=== PATIENT | male | born 1935 | race Caucasian/White ===

== ENCOUNTER 2016-05-26 16:45 | Inpatient (IN) | payer MEDICARE ==
[~2016-05-26] VITALS: Ht 172.7 cm; Wt 81.7 kg
[2016-05-26] VITALS (10 sets, daily range): BP systolic 135–200; BP diastolic 72–87; PULSE 62–97; RESP 18–20; TEMP 97.1–98.7; O2SAT 96–100
[~2016-05-26 16:45] MED LIST: ASPI81 PO; CITA20TA4 PO
--- NOTE | 2016-05-26 17:52 | RADHPO ---
EXAM DATE/TIME: 05/26/2016 17:17 [facility] COMPARISON: No previous studies available for comparison. INDICATIONS : Wind blown door shut on left ankle MEDICAL HISTORY : None. SURGICAL HISTORY : None. ENCOUNTER: Initial ACUITY: 3 days PAIN SCORE: 8/10 LOCATION: Left ankle FINDINGS: There is a mildly displaced fracture of the lateral malleolus with medial subluxation of the distal t ibia and talar dome. CONCLUSION: 1. Lateral malleolus fracture with medial subluxation of the distal tibia. Soft tissue swelling. Daljit Hughes MD on May 26, 2016 at 17:50 Board Certified Radiologist. This report was verified electronically.
[2016-05-26] MEDS ORDERED: MORPHINE SULFATE 8 MG/ML INJ IV PUSH ONE (18:00)
[2016-05-26] MEDS ORDERED: ETOMIDATE 20 MG/10 ML VIAL IV PUSH ONE (18:00)
[2016-05-26] MEDS ORDERED: ONDANSETRON HCL 4 MG/2 ML VIAL IV PUSH ONE (18:00)
[2016-05-26] MEDS ORDERED: NORC5TAB PO (18:08)
[2016-05-26] MEDS ORDERED: ASPI1TAB69 PO (18:10)
--- NOTE | 2016-05-26 18:10 | PD ---
HPI . Left ankle injury Chief Complaint: Injury Time Seen by Provider: 17:51 Travel History International Travel<30 days: No Contact w/Intl Traveler<30days: No Traveled to known affect area: No History of Present Illness HPI Patient presents for evaluation of left ankle injury. He states that he was bringing groceries in 3 days ago. He states that the door slammed shut onto his right ankle causing him to fall. He states that he was sitting on top of his left ankle. Since then, he has been around at home by using a rolling chair. He has not been able to ambulate on his ankle at all. He has been treating his pain with aspirin with good relief. He denies any other associated injuries. [facility] Past Medical History Cardiac Catheterization: Yes Diminished Hearing: No Respiratory: Yes (ASBESTOSIS) Past Surgical History Cardiac Surgery: Yes (ANGIOPLASTY) Social History Alcohol Use: Yes Tobacco Use: Yes (OCC) Substance Use: No Allergies-Medications (Allergen,Severity, Reaction): Coded Allergies: No Known Allergies (Verified , 05/26/16) Reported Meds & Prescriptions Reported Meds & Active Scripts Active Reported Aspirin 81 Mg Tabdr 81 Mg PO DAILY Review of Systems Except as stated in HPI: all other systems reviewed are Neg Musculoskeletal: Positive: Arthralgias Skin: Positive Other (bruising on the medial aspect of the right ankle where he was struck by the door and bruising on the left ankle associated with the ankle injury.) Physical Exam Narrative GENERAL: This is a healthy-appearing elderly man who is in no acute distress. SKIN: Warm and dry. He has some bruising to the medial aspect of the right ankle. He has some pretty significant bruising to the left ankle. HEAD: Atraumatic. Normocephalic. EYES: Pupils equal and round. ENT: No nasal bleeding or discharge. Mucous membranes pink and moist. NECK: Trachea midline. CARDIOVASCULAR: Regular rate and rhythm. RESPIRATORY: No accessory muscle use. MUSCULOSKELETAL: Obvious deformity of the left ankle. The medial malleolus appears to be about to protrude through the skin. NEUROLOGICAL: Awake and alert. No obvious cranial nerve deficits. Motor grossly within normal limits. Normal speech. PSYCHIATRIC: Appropriate mood and affect; insight and judgment normal. Data Data Last Documented VS Vital Signs Date Time Temp Pulse Resp B/P Pulse Ox O2 Delivery O2 Flow Rate FiO2 05/26/16 19:00 16 05/26/16 18:50 97 3.00 05/26/16 18:34 Room Air 05/26/16 18:33 75 148/72 05/26/16 16:52 98.7 Orders Ankle, Complete ([id number]) (05/26/16 ) Ice/Cold Pack (05/26/16 16:58) ^ Consent (05/26/16 17:58) Sodium Chlor 0.9% 1000 Ml Inj (Ns 1000 M (05/26/16 18:00) Etomidate Inj (Amidate Inj) (05/26/16 18:00) Morphine Inj (Morphine Inj) (05/26/16 18:00) Ondansetron Inj (Zofran Inj) (05/26/16 18:00) Electrocardiogram (05/26/16 18:27) Ckmb (Isoenzyme) Profile (05/26/16 18:27) Complete Blood Count With Diff (05/26/16 18:27) Comprehensive Metabolic Panel (05/26/16 18:27) Magnesium (Mg) (05/26/16 18:27) Prothrombin Time / Inr (Pt) (05/26/16 18:27) Act Partial Throm Time (Ptt) (05/26/16 18:27) Troponin I (05/26/16 18:27) Chest, Single Ap (05/26/16 18:27) Ecg Monitoring (05/26/16 18:27) Iv Access Insert/Monitor (05/26/16 18:27) Oximetry (05/26/16 18:27) Oxygen Administration (05/26/16 18:27) Admit To Inpatient (05/26/16 ) Vital Signs (Adult) Q4H (05/26/16 18:55) Activity Bed Rest (05/26/16 18:55) Diet Heart Healthy (05/26/16 Dinner) Diet Npo (05/27/16 Breakfast) Sodium Chloride 0.9% Flush (Ns Flush) (05/26/16 19:00) Sodium Chloride 0.9% Flush (Ns Flush) (05/26/16 21:00) Acetaminophen (Tylenol) (05/26/16 19:00) Ondansetron Inj (Zofran Inj) (05/26/16 19:00) Consult Orthopedic (05/26/16 ) Morphine Inj (Morphine Inj) (05/26/16 19:00) Splint Or Brace Apply/Monitor (05/26/16 19:02) CKMB (05/26/16 18:30) CKMB% (05/26/16 18:30) Ankle, Limited (Ap&Lat) (05/26/16 19:07) Labs Laboratory Tests Test 05/26/16 18:30 White Blood Count 9.7 TH/MM3 Red Blood Count 2.96 MIL/MM3 Hemoglobin 10.3 GM/DL Hematocrit 30.4 % Mean Corpuscular Volume 102.8 FL Mean Corpuscular Hemoglobin 35.0 PG Mean Corpuscular Hemoglobin 34.0 % Concent Red Cell Distribution Width 17.5 % Platelet Count 150 TH/MM3 Mean Platelet Volume 9.1 FL Neutrophils (%) (Auto) 75.8 % Lymphocytes (%) (Auto) 15.6 % Monocytes (%) (Auto) 7.5 % Eosinophils (%) (Auto) 0.5 % Basophils (%) (Auto) 0.6 % Neutrophils # (Auto) 7.4 TH/MM3 Lymphocytes # (Auto) 1.5 TH/MM3 Monocytes # (Auto) 0.7 TH/MM3 Eosinophils # (Auto) 0.0 TH/MM3 Basophils # (Auto) 0.1 TH/MM3 CBC Comment DIFF FINAL Differential Comment Prothrombin Time 11.3 SEC Prothromb Time International 1.0 RATIO Ratio Activated Partial 28.3 SEC Thromboplast Time Sodium Level 139 MEQ/L Potassium Level 3.9 MEQ/L Chloride Level 101 MEQ/L Carbon Dioxide Level 28.0 MEQ/L Anion Gap 10 MEQ/L Blood Urea Nitrogen 32 MG/DL Creatinine 1.20 MG/DL Estimat Glomerular Filtration 59 ML/MIN Rate Random Glucose 120 MG/DL Calcium Level 8.7 MG/DL Magnesium Level 2.5 MG/DL Total Bilirubin 1.6 MG/DL Aspartate Amino Transf 189 U/L (AST/SGOT) Alanine Aminotransferase 101 U/L (ALT/SGPT) Alkaline Phosphatase 79 U/L Total Creatine Kinase 536 U/L Creatine Kinase MB 2.1 NG/ML Creatine Kinase MB % 0.4 % Troponin I LESS THAN 0.02 NG/ML Total Protein 7.4 GM/DL Albumin 3.6 GM/DL MDM Medical Decision Making Medical Screen Exam Complete: Yes Emergency Medical Condition: Yes Medical Record Reviewed: Yes (he has a history of hypertension and a remote history of prostate cancer) Interpretation(s) EKG shows a normal sinus rhythm with no acute ischemic changes. EKG is unchanged from previous. Differential Diagnosis Differential diagnosis of extremity trauma includes but is not limited to fracture, sprain or strain, dislocation, contusion Narrative Course Patient presents for treatment of a left ankle injury. On exam, he has an obvious deformity. It also looks like fracture could easily go from a closed fracture to an open fracture. Therefore, he will be given conscious sedation and the fracture will be reduced. Last Impressions Ankle X-Ray 05/26/16 0000 Signed Impressions: Service Date/Time: Saturday, May 26, 2016 17:17 - CONCLUSION: 1. Lateral malleolus fracture with medial subluxation of the distal tibia. Soft tissue swelling. Daljit Hughes MD The x-ray was independently viewed by me. Laboratory Tests Test 05/26/16 18:30 White Blood Count 9.7 TH/MM3 Red Blood Count 2.96 MIL/MM3 Hemoglobin 10.3 GM/DL Hematocrit 30.4 % Mean Corpuscular Volume 102.8 FL Mean Corpuscular Hemoglobin 35.0 PG Mean Corpuscular Hemoglobin 34.0 % Concent Red Cell Distribution Width 17.5 % Platelet Count 150 TH/MM3 Mean Platelet Volume 9.1 FL Neutrophils (%) (Auto) 75.8 % Lymphocytes (%) (Auto) 15.6 % Monocytes (%) (Auto) 7.5 % Eosinophils (%) (Auto) 0.5 % Basophils (%) (Auto) 0.6 % Neutrophils # (Auto) 7.4 TH/MM3 Lymphocytes # (Auto) 1.5 TH/MM3 Monocytes # (Auto) 0.7 TH/MM3 Eosinophils # (Auto) 0.0 TH/MM3 Basophils # (Auto) 0.1 TH/MM3 CBC Comment DIFF FINAL Differential Comment Prothrombin Time 11.3 SEC Prothromb Time International 1.0 RATIO Ratio Activated Partial 28.3 SEC Thromboplast Time Sodium Level 139 MEQ/L Potassium Level 3.9 MEQ/L Chloride Level 101 MEQ/L Carbon Dioxide Level 28.0 MEQ/L Anion Gap 10 MEQ/L Blood Urea Nitrogen 32 MG/DL Creatinine 1.20 MG/DL Estimat Glomerular Filtration 59 ML/MIN Rate Random Glucose 120 MG/DL Calcium Level 8.7 MG/DL Magnesium Level 2.5 MG/DL Total Bilirubin 1.6 MG/DL Aspartate Amino Transf 189 U/L (AST/SGOT) Alanine Aminotransferase 101 U/L (ALT/SGPT) Alkaline Phosphatase 79 U/L Total Creatine Kinase 536 U/L Creatine Kinase MB 2.1 NG/ML Creatine Kinase MB % 0.4 % Troponin I LESS THAN 0.02 NG/ML Total Protein 7.4 GM/DL Albumin 3.6 GM/DL Procedures Procedure Narrative Following IV conscious sedation, fracture was easily reduced by pushing the heel medially. Splint was applied by the techs. During the splint application , the fracture was noted to be extremely unstable. On postreduction film, there really does not appear to be that much improvement in the alignment. However, there is definitely improvement in the tension on the skin. Physician Communication Physician Communication Dr. Auguste has requested that the patient be transferred to [facility] to the services of the hospitalist so that the patient can have surgery either tonight or tomorrow. Diagnosis Primary Impression: Closed left ankle fracture Qualified Code: S82.892A - Closed left ankle fracture, initial encounter Referrals: Eloy Auguste MD 3 days Patient Instructions: Ankle Fracture (ED), General Instructions Disposition: 70 TRANSFER TO OTHER FACILITY Condition: Stable Rachel Traylor MD May 26, 2016 18:10
[2016-05-26 18:47] LABS: AUTOMATED NEUTROPHIL # 7.4 TH/MM3 (1.8-7.7); BASOPHIL # 0.1 TH/MM3 (0-0.2); BASOPHIL % 0.6 % (0.0-2.0); EOSINOPHIL % 0.5 % (0.0-4.0); HEMATOCRIT 30.4 % (39.0-51.0); LYMPH % 15.6 % (9.0-44.0); LYMPHOCYTE # 1.5 TH/MM3 (1.0-4.8); MEAN CELL VOLUME 102.8 FL (80.0-100.0); MONO % 7.5 % (0.0-8.0); NEUT % 75.8 % (16.0-70.0); PLATELET COUNT 150 TH/MM3 (150-450); RED BLOOD COUNT 2.96 MIL/MM3 (4.50-5.90); RED CELL DISTRIBUTION WIDTH 17.5 % (11.6-17.2); WHITE BLOOD COUNT 9.7 TH/MM3 (4.0-11.0)
[2016-05-26 18:48] LABS: HEMO FLAGS DIFF FINAL
[2016-05-26] MEDS: SODIUM CHLOR 0.9% 1000 ML INJ 1,000 ML IV SCH (18:48)
[2016-05-26 18:53] LABS: CHLORIDE 101 MEQ/L (98-107); POTASSIUM 3.9 MEQ/L (3.5-5.1); SODIUM (NA) 139 MEQ/L (136-145)
[2016-05-26 18:57] LABS: ANION GAP 10 MEQ/L (5-15); BLOOD UREA NITROGEN 32 MG/DL (7-18); MAGNESIUM 2.5 MG/DL (1.5-2.5)
[2016-05-26 18:58] LABS: APTT (PATIENT) 28.3 SEC (24.3-30.1); PROTHROMBIN TIME - PATIENT 11.3 SEC (9.8-11.6)
[2016-05-26 19:00] LABS: ALT (GPT) 101 U/L (12-78); AST (GOT) 189 U/L (15-37); GLOMERULAR FILTRATION RATE 59 ML/MIN (>89)
[2016-05-26] MEDS ORDERED: ONDANSETRON HCL 4 MG/2 ML VIAL IVP PRN (19:00)
[2016-05-26] MEDS ORDERED: MORPHINE SULFATE 4 MG/ML INJ IV PUSH PRN (19:00)
[2016-05-26] MEDS ORDERED: SODIUM CHLORIDE 0.9% FLUSH 5 ML FLUSH FLUSH PRN (19:00)
[2016-05-26] MEDS ORDERED: ACETAMINOPHEN 325 MG TAB PO PRN (19:00)
[2016-05-26 19:02] LABS: TOTAL BILIRUBIN ADULT 1.6 MG/DL (0.2-1.0)
[2016-05-26 19:03] LABS: ALKALINE PHOSPHATASE 79 U/L (45-117)
[2016-05-26 19:05] LABS: CREATINE KINASE 536 U/L (39-308)
--- NOTE | 2016-05-26 19:12 | PD ---
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 Traylor, please see her notes for further details. Patient is seen by me for evaluation of consciousness sedation. Vital signs are stable. He is conversant. Conscious sedation paperwork been completed and consents done. GENERAL: Well-nourished, well-developed pleasant elderly white male patient in mild distress. Awake and oriented 3. SKIN: Warm and dry. HEAD: Normocephalic. NECK: Supple, trachea midline. CARDIOVASCULAR: Regular rate and rhythm without murmurs, gallops, or rubs. RESPIRATORY: Breath sounds equal bilaterally. No accessory muscle use. After the risks and benefits were discussed the following procedure was performed: MODERATE SEDATION: The patient was placed on a monitor tech and pulse oximetry. An ambu bag and suction was immediately available at bedside. The patient was monitored by the nurse. Oxygen saturation, heart rate and blood pressure were monitored. Procedural sedation was acheived using 20 mg of etomidate. Patient had parkinsonian tremors during the sedation and he was given some oxygen during the episode, recovered without problems with in 5 minutes. The patient was observed until awake and alert. Patient's ankle was reduced during this time. Procedural Sedation time in attendance was 15 minutes. Patient tolerated procedure well. Data Data Last Documented VS Vital Signs Date Time Temp Pulse Resp B/P Pulse Ox O2 Delivery O2 Flow Rate FiO2 05/26/16 18:34 97 Room Air 05/26/16 18:33 75 18 148/72 05/26/16 16:52 98.7 Orders Ankle, Complete ([id number]) (05/26/16 ) Ice/Cold Pack (05/26/16 16:58) ^ Consent (05/26/16 17:58) Sodium Chlor 0.9% 1000 Ml Inj (Ns 1000 M (05/26/16 18:00) Etomidate Inj (Amidate Inj) (05/26/16 18:00) Morphine Inj (Morphine Inj) (05/26/16 18:00) Ondansetron Inj (Zofran Inj) (05/26/16 18:00) Electrocardiogram (05/26/16 18:27) Ckmb (Isoenzyme) Profile (05/26/16 18:27) Complete Blood Count With Diff (05/26/16 18:) Comprehensive Metabolic Panel (05/26/16) Magnesium (Mg) (05/26/16) Prothrombin Time / Inr (Pt) (05/26/16 18:) Act Partial Throm Time (Ptt) (05/26/16 18:) Troponin I (05/26/16 18:) Chest, Single Ap (05/26/16:) Ecg Monitoring (05/26/16 18:) Iv Access Insert/Monitor (05/26/16) Oximetry (05/26/16 18:) Oxygen Administration (05/26/16 18:) Admit To Inpatient (05/26/16 ) Vital Signs (Adult) Q4H (05/26/16 18:55) Activity Bed Rest (05/26/16 18:55) Diet Heart Healthy (05/26/16 Dinner) Diet Npo (05/27/16 Breakfast) Sodium Chloride 0.9% Flush (Ns Flush) (05/26/16 19:00) Sodium Chloride 0.9% Flush (Ns Flush) (05/26/16 21:00) Acetaminophen (Tylenol) (05/26/16 19:00) Ondansetron Inj (Zofran Inj) (05/26/16 19:00) Consult Orthopedic (05/26/16 ) Morphine Inj (Morphine Inj) (05/26/16 19:00) Splint Or Brace Apply/Monitor (05/26/16 19:02) CKMB (05/26/16 18:30) CKMB% (05/26/16 18:30) Labs Laboratory Tests Test 05/26/16 18:30 White Blood Count 9.7 TH/MM3 Red Blood Count 2.96 MIL/MM3 Hemoglobin 10.3 GM/DL Hematocrit 30.4 % Mean Corpuscular Volume 102.8 FL Mean Corpuscular Hemoglobin 35.0 PG Mean Corpuscular Hemoglobin 34.0 % Concent Red Cell Distribution Width 17.5 % Platelet Count 150 TH/MM3 Mean Platelet Volume 9.1 FL Neutrophils (%) (Auto) 75.8 % Lymphocytes (%) (Auto) 15.6 % Monocytes (%) (Auto) 7.5 % Eosinophils (%) (Auto) 0.5 % Basophils (%) (Auto) 0.6 % Neutrophils # (Auto) 7.4 TH/MM3 Lymphocytes # (Auto) 1.5 TH/MM3 Monocytes # (Auto) 0.7 TH/MM3 Eosinophils # (Auto) 0.0 TH/MM3 Basophils # (Auto) 0.1 TH/MM3 CBC Comment DIFF FINAL Differential Comment Prothrombin Time 11.3 SEC Prothromb Time International 1.0 RATIO Ratio Activated Partial 28.3 SEC Thromboplast Time Sodium Level 139 MEQ/L Potassium Level 3.9 MEQ/L Chloride Level 101 MEQ/L Carbon Dioxide Level 28.0 MEQ/L Anion Gap 10 MEQ/L Blood Urea Nitrogen 32 MG/DL Creatinine 1.20 MG/DL Estimat Glomerular Filtration 59 ML/MIN Rate Random Glucose 120 MG/DL Calcium Level 8.7 MG/DL Magnesium Level 2.5 MG/DL Total Bilirubin 1.6 MG/DL Aspartate Amino Transf 189 U/L (AST/SGOT) Alanine Aminotransferase 101 U/L (ALT/SGPT) Alkaline Phosphatase 79 U/L Total Creatine Kinase 536 U/L Troponin I LESS THAN 0.02 NG/ML Total Protein 7.4 GM/DL Albumin 3.6 GM/DL [facility] Medical Record Reviewed: Yes Supervised Visit with LEELEE: No Diagnosis Primary Impression: Closed left ankle fracture Qualified Code: S82.892A - Closed left ankle fracture, initial encounter Referrals: Eloy Auguste MD 3 days Patient Instructions: General Instructions, Ankle Fracture (ED) Disposition: 70 TRANSFER TO OTHER FACILITY Condition: Stable SoonRoberto max MD May 26, 2016 19:12
[2016-05-26 19:17] LABS: CKMB 2.1 NG/ML (0.5-3.6)
--- NOTE | 2016-05-26 19:34 | RADHPO ---
EXAM DATE/TIME: 05/26/2016 18:38 [facility] COMPARISON: No previous studies available for comparison. INDICATIONS : Trauma left ankle fracture. Pre-op. Evaluate for pneumothorax, pneumonia, and other communicable dise ases. MEDICAL HISTORY : Left ankle fracture. SURGICAL HISTORY : None. ENCOUNTER: Initial ACUITY: 4 - 6 days PAIN SCORE: 0/10 LOCATION: Bilateral chest FINDINGS: A single view of the chest demonstrates the lungs to be symmetrically aerated without evidence of mas s, infiltrate or effusion. The cardiomediastinal contours are unremarkable. Osseous structures are intact. CONCLUSION: 1. No active disease. Daljit Hughes MD on May 26, 2016 at 19:32 Board Certified Radiologist. This report was verified electronically.
--- NOTE | 2016-05-26 19:47 | RADHPO ---
EXAM DATE/TIME: 05/26/2016 19:09 [facility] COMPARISON: No previous studies available for comparison. INDICATIONS : Post reduction left ankle. MEDICAL HISTORY : Left ankle fracture. SURGICAL HISTORY : None. ENCOUNTER: Initial ACUITY: 1 day PAIN SCORE: 0/10 LOCATION: Left ankle. FINDINGS: Two view exam was performed of the left ankle. There is a mildly displaced fracture of the lateral m alleolus. Medial subluxation of the distal tibia and talar dome an overlying cast present. CONCLUSION: 1. Lateral malleolus fracture with medial subluxation persisting. Daljit Hughes MD on May 26, 2016 at 19:45 Board Certified Radiologist. This report was verified electronically.
[2016-05-27] VITALS (7 sets, daily range): BP systolic 135–170; BP diastolic 63–75; PULSE 61–81; RESP 17–19; TEMP 97–98.6; O2SAT 95–97
[2016-05-27] MEDS ORDERED: ENALAPRILAT 1.25 MG/ML VIAL IV PRN
[2016-05-27] MEDS: SODIUM CHLORIDE 0.9% FLUSH 5 ML FLUSH FLUSH SCH ×3 (01:49→21:00)
[2016-05-27] MEDS: SODIUM CHLOR 0.9% 1000 ML INJ 1,000 ML IV SCH ×2 (01:49→17:48)
[2016-05-27] MEDS ORDERED: INSULIN HUMAN REGULAR 1,000 UNITS/10 ML VIAL SQ PRN (02:45)
--- NOTE | 2016-05-27 09:26 | PD.CONS ---
cc: Eloy Auguste MD Closed Left Ankle Fx, ORIF (Nadya Strickland) [facility] Service Orthopedic Surgeons Consult Requested By [place] ER Staff Reason for Consult Left Ankle Fx Primary Care Physician Martir David MD Admission Diagnosis LEFT ANKLE FRACTURE Diagnoses: (1) Fracture of ankle, lateral malleolus, left, closed Diagnosis: Principal Chief Complaint: Left ankle Fx (Nadya Strickland) History of Present Illness 80 yo male presented to [facility] ER yesterday evening due to increased pain in left ankle and pain with ambulation. He admits 4 days ago he hit his left ankle on the door at home and immediately fell to the ground landing on his left foot. He had immediate pain and swelling but thought it would get better over time. He treated injury with conservative care including ice, elevation, rest and Aspirin. On day 3 after the injury he admits he couldn' t take the pain anymore and had his neighbor take him to the emergency room in [place]. After evaluation and x-rays it was revealed he had a closed left lateral malleolar fracture with medial subluxation. Due to an obvious deformity a conscious sedation closed reduction was attempted in the ER. Orthopedic consultation was requested. It was recommended at this time to have the patient transported to the main campus in [place] for surgical evaluation and treatment. He has never injured this extremity before and has no previous orthopedic conditions. He previously ambulated unassisted and lived independently at home. No other complaints are noted from patient. (Nadya Strickland) History of Present Illness The patient states the swelling did increase. He denies a previous history of similar problems or ankle pain prior to this injury. (Eloy Auguste MD) Review of Systems well outlined in medical record (Nadya Strickland) Past Family Social History Past Medical History CAD Past Surgical History Angioplasty 2008 Reported Medications Aspirin (Nadya Strickland) Allergies: Coded Allergies: Amidate (Verified Adverse Reaction, Intermediate, seizure activity, ) Active Ordered Medications Current Medications Medications (Trade) Dose Ordered Sig/Vladimir Route Start Time Stop Time Status Last Admin (NS 1000 ml Inj) 1,000 ml @ 125 mls/hr Q8H IV 05/26/16 18:00 05/27/16 01:49 (NS Flush) 2 ml UNSCH PRN FLUSH 05/26/16 19:00 (NS Flush) 2 ml BID FLUSH 05/26/16 21:00 05/27/16 01:49 (Tylenol) 650 mg Q4H PRN PO 05/26/16 19:00 (Zofran Inj) 4 mg Q6H PRN IVP 05/26/16 19:00 (Morphine Inj) 4 mg Q3H PRN IV PUSH 05/26/16 19:00 Enalaprilat 1.25 mg 1.25 mg Q6H PRN IV 05/27/16 00:00 05/27/16 01:49 Lactated Ringer's 1,000 ml @ 30 mls/hr Q24H IV 05/27/16 10:30 (NS 500 ml Inj) 500 ml @ 30 mls/hr [id number] IV 05/27/16 10:30 05/28/16 10:29 Reported Meds & Active Scripts Active Reported Aspirin 81 Mg Tabdr 81 Mg PO DAILY Family History noncontributory Social History Lives alone, independent. Social drinker and smoker. No drug use. (Nadya Strickland) Physical Exam Vital Signs Vital Signs Date Time Temp Pulse Resp B/P Pulse Ox O2 Delivery O2 Flow Rate FiO2 05/27/16 03:20 97.0 81 18 142/67 95 05/27/16 01:00 170/75 95 05/26/16 23:42 Room Air 05/26/16 23:30 170/81 194/83 05/26/16 22:02 70 20 182/83 98 05/26/16 21:58 70 20 182/83 99 05/26/16 21:16 62 20 173/86 98 05/26/16 20:33 97.1 62 18 200/87 96 05/26/16 20:16 64 20 153/73 97 05/26/16 19:10 74 20 166/79 100 Nasal Cannula 2 05/26/16 19:10 66 20 100 Nasal Cannula 2 05/26/16 19:00 16 05/26/16 18:50 97 3.00 05/26/16 18:34 97 Room Air 05/26/16 18:33 75 18 148/72 97 Room Air 05/26/16 18:01 93 16 97 Room Air 05/26/16 16:52 98.7 97 18 135/83 97 Physical Exam LLE: Dressings dry and splint intact. Splint was not removed for exam. Full sensation of toes and extremity. Skin is warm to touch. Ability to wiggle toes and flex knee and hip. Neurovascular intact. No other signs of extremity injury. Laboratory Laboratory Tests Test 05/26/16 18:30 White Blood Count 9.7 Red Blood Count 2.96 Hemoglobin 10.3 Hematocrit 30.4 Mean Corpuscular Volume 102.8 Mean Corpuscular Hemoglobin 35.0 Mean Corpuscular Hemoglobin 34.0 Concent Red Cell Distribution Width 17.5 Platelet Count 150 Mean Platelet Volume 9.1 Neutrophils (%) (Auto) 75.8 Lymphocytes (%) (Auto) 15.6 Monocytes (%) (Auto) 7.5 Eosinophils (%) (Auto) 0.5 Basophils (%) (Auto) 0.6 Neutrophils # (Auto) 7.4 Lymphocytes # (Auto) 1.5 Monocytes # (Auto) 0.7 Eosinophils # (Auto) 0.0 Basophils # (Auto) 0.1 CBC Comment DIFF FINAL Differential Comment Prothrombin Time 11.3 Prothromb Time International 1.0 Ratio Activated Partial 28.3 Thromboplast Time Sodium Level 139 Potassium Level 3.9 Chloride Level 101 Carbon Dioxide Level 28.0 Anion Gap 10 Blood Urea Nitrogen 32 Creatinine 1.20 Estimat Glomerular Filtration 59 Rate Random Glucose 120 Calcium Level 8.7 Magnesium Level 2.5 Total Bilirubin 1.6 Aspartate Amino Transf 189 (AST/SGOT) Alanine Aminotransferase 101 (ALT/SGPT) Alkaline Phosphatase 79 Total Creatine Kinase 536 Creatine Kinase MB 2.1 Creatine Kinase MB % 0.4 Troponin I LESS THAN 0.02 Total Protein 7.4 Albumin 3.6 (Nadya Strickland) Physical Exam He has good capillary refill and sensation. He is able do a straight leg raise without difficulty. (Eloy Auguste MD) Result Diagram: 05/26/16182905/26/161829 Imaging Last 48 hours Impressions Ankle X-Ray 05/26/16 190 Signed Impressions: Service Date/Time: Thursday, May 26, 2016 19:09 - CONCLUSION: 1. Lateral malleolus fracture with medial subluxation persisting. Daljit Hughes MD Chest X-Ray 05/26/16 1827 Signed Impressions: Service Date/Time: Thursday, May 26, 2016 18:38 - CONCLUSION: 1. No active disease. Daljit Hughes MD Ankle X-Ray 05/26/16 0000 Signed Impressions: Service Date/Time: Thursday, May 26, 2016 17:17 - CONCLUSION: 1. Lateral malleolus fracture with medial subluxation of the distal tibia. Soft tissue swelling. Daljit Hughes MD Course well outlined in medical record. (Nadya Strickland) Assessment & Plan Problem List: (1) Fracture of ankle, lateral malleolus, left, closed Assessment and Plan The findings were discussed with the patient. Recommendations are given for surgical management: left ankle open reduction internal fixation, to allow for mobilization and pain control. The nature of the planned surgical procedure, the risks, the benefits as well as postoperative expectations have been discussed with the patient in detail. In addition, alternatives of the treatment and risks were discussed. The patient acknowledges full understanding and consents to it. Written by Nadya Strickland (Ashley), acting as scribe for Dr. Auguste on at 09:23. (Nadya Strickland) Assessment and Plan The findings and alternatives of the treatment with operative and nonoperative were discussed. The patient's post reduction x-rays in the emergency department reveals no significant improvement with persistent lateral subluxation of the mortise. The patient therefore benefit from ORIF of the lateral malleolus. The possibility requiring a medial incision to obtain reduction was discussed. The patient understands the nature of the procedure as well as the rehabilitation process needed for recovery. He consents to it. The exam, history, and the medical decision-making described in the above note were completed with the assistance of the mid-level provider. I reviewed and agree with the findings presented. I attest that I had a [id number] encounter with the patient on the same day, and personally performed and documented my assessment and findings in the medical record. (Eloy Auguste MD) Nadya Strickland May 27, 2016 09:25 Eloy Auguste MD May 27, 2016 10:59
[2016-05-27] MEDS ORDERED: ceFAZolin 2 GM PREMIX 50 ML IV SCH (09:30)
--- NOTE | 2016-05-27 10:09 | HHI.HP ---
[facility] Service [facility] Primary Care Physician Martir David MD Admission Diagnosis LEFT ANKLE FRACTURE Diagnoses: (1) Fracture of ankle, lateral malleolus, left, closed Diagnosis: Principal Chief Complaint: L ankle pain Travel History International Travel<30 Days: No Contact w/Intl Traveler <30 Da: No Traveled to Known Affected Are: No History of Present Illness This is a 80-year-old male with history of possible coronary artery disease status post angioplasty presenting with left ankle pain. Per patient, he has been in his usual state of health until 3 days ago when he banged his left foot on the door after doing his groceries. Since then, he had trouble walking and has been having moderate to severe pain in the left ankle. No nausea, vomiting, shortness of breath, abdominal pain or diarrhea. Of note, his blood pressure has been elevated at home, usually in the systolic 140s but does not have any symptoms like numbness, weakness, slurred speech, chest pain or headache. Review of Systems ROS Limitations: Other (All other pertinent systems were reviewed and are negative.) Past Family Social History Past Medical History CAD Past Surgical History Angioplasty 2008 Reported Medications None Allergies: Coded Allergies: Amidate (Verified Adverse Reaction, Intermediate, seizure activity, ) Family History No cardiac history in the family Social History Lives alone, independent. Social drinker and smoker. No drug use. Physical Exam Vital Signs Vital Signs Date Time Temp Pulse Resp B/P Pulse Ox O2 Delivery O2 Flow Rate FiO2 05/27/16 08:00 97.6 68 19 157/70 96 05/27/16 03:20 97.0 81 18 142/67 95 05/27/16 01:00 170/75 95 05/26/16 23:42 Room Air 05/26/16 23:30 170/81 194/83 05/26/16 22:02 70 20 182/83 98 05/26/16 21:58 70 20 182/83 99 05/26/16 21:16 62 20 173/86 98 05/26/16 20:33 97.1 62 18 200/87 96 05/26/16 20:16 64 20 153/73 97 05/26/16 19:10 74 20 166/79 100 Nasal Cannula 2 05/26/16 19:10 66 20 100 Nasal Cannula 2 05/26/16 19:00 16 05/26/16 18:50 97 3.00 05/26/16 18:34 97 Room Air 05/26/16 18:33 75 18 148/72 97 Room Air 05/26/16 18:01 93 16 97 Room Air 05/26/16 16:52 98.7 97 18 135/83 97 Physical Exam Not in distress, well-nourished, looks stated age PERRL, pink conjunctiva without injection, anicteric Nose without bleeding, airway patent, oropharynx clear Supple neck, no masses or thyromegaly, trachea midline Normal rate and regular rhythm, no murmurs gallops or rubs appreciated. Clear to auscultation and symmetric bilaterally, normal respiratory effort. Normal bowel sounds, soft, non-tender, nondistended, no guarding. Extremities without clubbing, cyanosis, or edema. Left ankle dressings in place. No rash of generalized distribution. Skin is warm and dry. AAO x3, no cranial nerve deficits, moves all 4 extremities, no focal neurologic deficits Normal mood, appropriate affect Laboratory Laboratory Tests Test 05/26/16 18:30 White Blood Count 9.7 Red Blood Count 2.96 Hemoglobin 10.3 Hematocrit 30.4 Mean Corpuscular Volume 102.8 Mean Corpuscular Hemoglobin 35.0 Mean Corpuscular Hemoglobin 34.0 Concent Red Cell Distribution Width 17.5 Platelet Count 150 Mean Platelet Volume 9.1 Neutrophils (%) (Auto) 75.8 Lymphocytes (%) (Auto) 15.6 Monocytes (%) (Auto) 7.5 Eosinophils (%) (Auto) 0.5 Basophils (%) (Auto) 0.6 Neutrophils # (Auto) 7.4 Lymphocytes # (Auto) 1.5 Monocytes # (Auto) 0.7 Eosinophils # (Auto) 0.0 Basophils # (Auto) 0.1 CBC Comment DIFF FINAL Differential Comment Prothrombin Time 11.3 Prothromb Time International 1.0 Ratio Activated Partial 28.3 Thromboplast Time Sodium Level 139 Potassium Level 3.9 Chloride Level 101 Carbon Dioxide Level 28.0 Anion Gap 10 Blood Urea Nitrogen 32 Creatinine 1.20 Estimat Glomerular Filtration 59 Rate Random Glucose 120 Calcium Level 8.7 Magnesium Level 2.5 Total Bilirubin 1.6 Aspartate Amino Transf 189 (AST/SGOT) Alanine Aminotransferase 101 (ALT/SGPT) Alkaline Phosphatase 79 Total Creatine Kinase 536 Creatine Kinase MB 2.1 Creatine Kinase MB % 0.4 Troponin I LESS THAN 0.02 Total Protein 7.4 Albumin 3.6 Result Diagram: 05/26/16182905/26/161829 Imaging Last Impressions Ankle X-Ray 05/26/161906 Signed Impressions: Service Date/Time: Thursday, May 26, 2016 19:09 - CONCLUSION: 1. Lateral malleolus fracture with medial subluxation persisting. Daljit Hughes MD Chest X-Ray 05/26/161826 Signed Impressions: Service Date/Time: Thursday, May 26, 2016 18:38 - CONCLUSION: 1. No active disease. Daljit Hughes MD Assessment and Plan Problem List: (1) Fracture of ankle, lateral malleolus, left, closed ICD Code: S82.62XA Status: Acute Assessment and Plan This is a 80-year-old male admitted for left lateral malleolar fracture. Left lateral malleolus fracture-consult orthopedics, surgery per orthopedics. Start pain control with oral and IV narcotics as needed. History of coronary artery disease-status post angioplasty in the past, allegedly initially placed on cardiac meds but taken off. EKG personally reviewed did not show any abnormalities, sinus rhythm. Uncontrolled hypertension-per patient, usually systolic more than 140s at home, here, 170s to 180s. Start Vasotec as needed, start oral medication if still uncontrolled. EKG as above. Check urinalysis to check for proteinuria. Mild macrocytic anemia-could be from folate deficiency, check folic acid levels and iron panel. Mild LFT elevation and hyperbilirubinemia- recheck, possibly from alcohol use. DVT prophylaxis: Start after surgery. Physician Certification 2 Midnight Certification Type: Admission for Inpatient Services Order for Inpatient Services The services are ordered in accordance with Medicare regulations or non- Medicare payer requirements, as applicable. In the case of services not specified as inpatient-only, they are appropriately provided as inpatient services in accordance with the 2-midnight benchmark. Estimated LOS (days): 2 days is the estimated time the patient will need to remain in the hospital, assuming treatment plan goals are met and no additional complications. Post-Hospital Plan: Home Health Joanna Beck MD May 27, 2016 10:09
[2016-05-27] MEDS ORDERED: ENALAPRILAT 1.25 MG/ML VIAL IV PUSH PRN (10:15)
[2016-05-27] MEDS: SODIUM CHLORID 0.9% 500 ML IV SCH (10:30)
[2016-05-27] MEDS: LACTATED RINGER'S 1000 ML IV SCH (10:30)
[2016-05-27] MEDS ORDERED: GENTAMICIN SULFATE 80 MG/2 ML VIAL ONE ×2 (11:46)
[2016-05-27] MEDS: LACTATED RINGER'S 1000 ML INJ 1,000 ML IV SCH ×2 (13:07→21:32)
--- NOTE | 2016-05-27 13:07 | PD.OP ---
cc: Eloy Auguste MD Operative Report Date of Surgery: May 27, 2016 Preoperative Diagnosis: (1) Fracture of ankle, lateral malleolus, left, closed Postoperative Diagnosis: (1) Fracture of ankle, lateral malleolus, left, closed Procedure: Open reduction internal fixation left displaced lateral malleolus fracture Implants: Synthes Anesthesia: Gen. Surgeon: Eloy Auguste Integrated Circuit Design Engineer(s): Nadya Strickland PA-C (Ashley) The surgical procedure was assisted by my physician's dietetic assistant. Her presence was necessary throughout the case for manipulation and positioning of the surgical extremity. My PA was assisting me throughout the duration of this procedure. The skill set of the physician dietetic assistant was medically necessary to complete this procedure. During the surgical case the surgical attendant was working at the back table and the physician dietetic assistant was directly assisting me. Operation and Findings: Indications: This 80-year-old male injured his left ankle proximal to 3 days ago. Patient did not seek medical treatment. He was having progressive pain and swelling and difficulty ambulating. He presented to [facility]. X- rays revealed a displaced lateral malleolus fracture with mortise widening. An attempt by the emergency room staff to improve the alignment was unsuccessful. Recommendations are given for internal fixation. Procedure and findings: The patient was taken to the operative suite and after undergoing an adequate level of general anesthesia Supine on the operating table. Preoperative antibiotics consisted of Ancef 1 g IV. The left lower extremity was then prepped and draped in usual sterile fashion with alcohol and Hibiclens. A standard lateral approach to the distal fibula was made with incision along the shaft. This was carried down through skin and subcutaneous tense tissue with a knife. Muscular fascia was incised and split longitudinally. Blunt and sharp dissection and carried out exposing the fracture site. The patient had an oblique fracture at the mortise level. The fracture was thoroughly irrigated and curetted of all hematoma. The fracture was reduced and held with a clamp. A lag screw was placed from anterior to posterior giving good fixation. A locking side plate was then applied. It was initially fixed proximally with cortical screw fixation. The position was checked in both the AP and lateral planes with the C-arm. Distal locking screws were placed. The additional proximal cortical screws were then placed. The position of the fracture reduction and placement of the internal fixation were checked in both the AP and lateral planes with the C-arm. The wound was thoroughly irrigated. Was closed in layers utilizing 0 Vicryl suture on the muscular fascia, 2-0 Vicryl suture in subcutaneous tense tissue and 3-0 nylon on the skin. Sterile dressings were applied, the patient was placed into a splint, awakened, transferred to hospital bed, and taken to the recovery room in stable condition. Estimated blood loss: Minimal Complications: None Tourniquet time 47 minutes Eloy Auguste MD May 27, 2016 13:07
[2016-05-27] MEDS ORDERED: ACETAMINOPHEN 325 MG TAB PO PRN (13:15)
[2016-05-27] MEDS ORDERED: SODIUM CHLORIDE 0.9% FLUSH 5 ML FLUSH IVF PRN (13:15)
[2016-05-27] MEDS ORDERED: TEMAZEPAM 15 MG CAP PO PRN (13:15)
[2016-05-27] MEDS ORDERED: POVIDONE IODINE 10% SOLN 118 ML BOTTLE TOPICAL PRN (13:15)
[2016-05-27] MEDS ORDERED: ONDANSETRON HCL 4 MG/2 ML VIAL IVP PRN (13:15)
[2016-05-27] MEDS ORDERED: BISACODYL 10 MG SUPP PR PRN (13:15)
[2016-05-27] MEDS ORDERED: Post-op Orders (for Pharmacy) MISC XX ONE (13:15)
[2016-05-27] MEDS ORDERED: MORPHINE SULFATE 4 MG/ML INJ IV PUSH PRN (13:15)
[2016-05-27] MEDS ORDERED: ALUMINUM/MAGNESIUM/SIMETH 30 ML CUP PO PRN (13:15)
[2016-05-27] MEDS ORDERED: oxyCODONE/ACETAMINOPHEN 5 MG/325 MG TAB PO PRN ×2 (13:15)
--- NOTE | 2016-05-27 13:22 | RADRPT ---
EXAM DATE/TIME: 05/27/2016 12:31 [facility] COMPARISON: ANKLE LEFT COMPLETE ([id number]), May 26, 2016, 17:17. INDICATIONS : Post op left ankle ORIF. MEDICAL HISTORY : Unobtainable. SURGICAL HISTORY : Unobtainable. ENCOUNTER: Initial ACUITY: 1 day PAIN SCORE: Non-responsive. LOCATION: Left ankle. FINDINGS: Three view exam was performed of the left ankle. Patient status post internal fixation for fractures along the distal fibula. There is good position and alignment of the fracture fragments. The hardware is grossly intact. There is good alignment at the mortise joint.. CONCLUSION: Good position and alignment on this postoperative study. Kal Padilla MD on May 27, 2016 at 13:20 Board Certified Radiologist. This report was verified electronically.
[2016-05-27] MEDS ORDERED: DO NOT ADM ANY ANTICOAGULANT DRUGS XX PRN (13:45)
[2016-05-27] MEDS ORDERED: ePHEDrine/NS 25 MG/5 ML SYR IV ONE (14:09)
[2016-05-27] MEDS ORDERED: PROPOFOL 200 MG/20 ML AMP IV ONE (14:09)
[2016-05-27] MEDS ORDERED: LACTATED RINGER'S 1000 ML INJ 1,000 ML IV ONE (14:09)
[2016-05-27] MEDS ORDERED: ONDANSETRON HCL 4 MG/2 ML VIAL IV PUSH ONE (14:09)
--- NOTE | 2016-05-27 14:20 | EKG ---
Date Performed: 05/26/2016 Time Performed: 18:32:28 PTAGE: 80 years EKG: Sinus rhythm . Compared to previous tracing, sinus rate has increased Normal ECG PREVIOUS TRACING : 11/11/2010 00.26 DOCTOR: Fer Mcmillan Interpretating Date/Time 05/27/2016 14:19:03
[2016-05-27] MEDS: ceFAZolin 2 GM PREMIX 50 ML IV SCH ×2 (17:48→21:33)
[2016-05-27] MEDS: SODIUM CHLORIDE 0.9% FLUSH 5 ML FLUSH IVF SCH (21:00)
[2016-05-28] MEDS: SODIUM CHLOR 0.9% 1000 ML INJ 1,000 ML IV SCH ×3 (02:00→18:00)
[2016-05-28] MEDS: ceFAZolin 2 GM PREMIX 50 ML IV SCH (02:41)
[2016-05-28] MEDS: SODIUM CHLORID 0.9% 500 ML IV SCH (03:10)
[2016-05-28 03:30] VITALS: BP 163/71; PULSE 74; RESP 17; TEMP 98.4; O2SAT 95
[2016-05-28 07:14] LABS: AUTOMATED NEUTROPHIL # 4.1 TH/MM3 (1.8-7.7); BASOPHIL % 0.2 % (0.0-2.0); EOSINOPHIL % 0.1 % (0.0-4.0); HEMATOCRIT 29.3 % (39.0-51.0); HEMO FLAGS DIFF FINAL; LYMPH % 21.1 % (9.0-44.0); LYMPHOCYTE # 1.3 TH/MM3 (1.0-4.8); MEAN CELL VOLUME 103.8 FL (80.0-100.0); MEAN CORPUSCULAR HEMOGLOBIN 35.9 PG (27.0-34.0); MEAN CORPUSCULAR HGB CONC 34.6 % (32.0-36.0); MONO % 9.7 % (0.0-8.0); NEUT % 68.9 % (16.0-70.0); PLATELET COUNT 164 TH/MM3 (150-450); RED BLOOD COUNT 2.82 MIL/MM3 (4.50-5.90); RED CELL DISTRIBUTION WIDTH 17.4 % (11.6-17.2)
[2016-05-28 07:38] LABS: ALKALINE PHOSPHATASE 77 U/L (45-117); ALT (GPT) 148 U/L (12-78); ANION GAP 6 MEQ/L (5-15); AST (GOT) 212 U/L (15-37); BICARBONATE 29.1 MEQ/L (21.0-32.0); BLOOD UREA NITROGEN 21 MG/DL (7-18); CHLORIDE 105 MEQ/L (98-107); FERRITIN 796 NG/ML (26-388); GLOMERULAR FILTRATION RATE 54 ML/MIN (>89); POTASSIUM 3.7 MEQ/L (3.5-5.1); SODIUM (NA) 140 MEQ/L (136-145); TOTAL BILIRUBIN ADULT 0.7 MG/DL (0.2-1.0); TRANSFERRIN IRON PROFILE 159 MG/DL (200-360)
[2016-05-28 08:05] VITALS: BP 151/77; PULSE 67; RESP 18; TEMP 97.7; O2SAT 98
--- NOTE | 2016-05-28 08:06 | PD.ORT.PN ---
Subjective Post Op Day #: 1 Subjective Remarks Patient laying comfortably in bed, awake and alert, answering questions appropriately. He admits his left ankle pain is well controlled. No other complaints at this time. Objective Vitals Vital Signs Date Time Temp Pulse Resp B/P Pulse Ox O2 Delivery O2 Flow Rate FiO2 05/28/16 03:30 98.4 74 17 163/71 95 05/27/16 23:30 98.0 80 17 142/73 97 05/27/16 19:15 98.6 70 17 135/63 97 05/27/16 18:55 Room Air 05/27/16 16:00 98.2 73 18 138/66 96 05/27/16 14:28 97.7 61 17 153/73 05/27/16 13:45 65 16 141/84 98 Nasal Cannula 2 05/27/16 13:30 61 16 121/74 97 Nasal Cannula 2 05/27/16 13:15 61 16 127/67 96 Nasal Cannula 2 05/27/16 13:05 97.4 66 16 135/68 98 Nasal Cannula 3 I/O 05/27/16 05/27/16 05/27/16 05/28/16 05/28/16 05/28/16 07:00 15:00 23:00 07:00 15:00 23:00 Intake Total 240 ml 1900 ml 1030 ml 771 ml Output Total 350 ml 50 ml 1000 ml Balance -110 ml 1850 ml 1030 ml -229 ml Intake Oral 240 ml 0 ml 720 ml 480 ml IV Total 0 ml 310 ml 291 ml Other 1900 ml Output Urine Total 350 ml 0 ml 1000 ml Estimated Blood Loss 50 ml Other 0 ml # Voids 3 4 # Bowel Movements 0 0 0 0 Result Diagram: 05/28/16 0545 05/28/16 0545 Imaging Last 48 hours Impressions Ankle X-Ray 05/27/16 0000 Signed Impressions: Service Date/Time: Friday, May 27, 2016 12:31 - CONCLUSION: Good position and alignment on this postoperative study. Kal Padilla MD Ankle X-Ray 05/26/161906 Signed Impressions: Service Date/Time: Thursday, May 26, 2016 19:09 - CONCLUSION: 1. Lateral malleolus fracture with medial subluxation persisting. Daljit Hughes MD Chest X-Ray 05/26/161826 Signed Impressions: Service Date/Time: Thursday, May 26, 2016 18:38 - CONCLUSION: 1. No active disease. Daljit Hughes MD Procedures Open reduction internal fixation left displaced lateral malleolus fracture Objective Remarks LLE: splint and dressing intact. skin is warm. good cap refill. ability to wiggle toes freely and move knee. Assessment & Plan Ortho Post Op Day #: 1 Problem List: (1) Fracture of ankle, lateral malleolus, left, closed Assessment and Plan Ortho status stable POD #1, Open reduction internal fixation left displaced lateral malleolus fracture Progress rehab Continue Lovenox for DVT prophylaxis, pain management and bowel regimen Dressing changes on day 2 Discharge planning Nadya Strickland May 28, 2016 08:06
[2016-05-28] MEDS: SENNOSIDES 8.6 MG TAB PO SCH ×2 (08:51→22:13)
[2016-05-28] MEDS: SODIUM CHLORIDE 0.9% FLUSH 5 ML FLUSH IVF SCH ×2 (08:51→22:13)
[2016-05-28] MEDS: MAGNESIUM HYDROXIDE SUSP 30 ML CUP PO PRN ×2 (08:52→18:20)
[2016-05-28] MEDS: LACTATED RINGER'S 1000 ML INJ 1,000 ML IV SCH (08:52)
[2016-05-28] MEDS: LACTATED RINGER'S 1000 ML IV SCH (10:30)
[2016-05-28] MEDS: ENOXAPARIN SODIUM 40 MG/0.4 ML SYRINGE SQ SCH (11:57)
[2016-05-28 12:09] VITALS: BP 144/72; PULSE 69; RESP 16; TEMP 97.9; O2SAT 97
[2016-05-28 16:22] VITALS: BP 140/50; PULSE 70; RESP 16; TEMP 98; O2SAT 98
--- NOTE | 2016-05-28 16:49 | HHI.PR ---
Subjective Remarks Follow-up for left ankle pain Left ankle pain manageable, status post ORIF today, no chest pain or palpitations. Objective Vitals Vital Signs Date Time Temp Pulse Resp B/P Pulse Ox O2 Delivery O2 Flow Rate FiO2 05/28/16 12:09 97.9 69 16 144/72 97 05/28/16 08:30 Room Air 05/28/16 08:05 97.7 67 18 151/77 98 05/28/16 03:30 98.4 74 17 163/71 95 05/27/16 23:30 98.0 80 17 142/73 97 05/27/16 19:15 98.6 70 17 135/63 97 05/27/16 18:55 Room Air I/O 05/27/16 05/27/16 05/27/16 05/28/16 05/28/16 05/28/16 07:00 15:00 23:00 07:00 15:00 23:00 Intake Total 240 ml 1900 ml 1030 ml 771 ml Output Total 350 ml 50 ml 1000 ml Balance -110 ml 1850 ml 1030 ml -229 ml Intake Oral 240 ml 0 ml 720 ml 480 ml IV Total 0 ml 310 ml 291 ml Other 1900 ml Output Urine Total 350 ml 0 ml 1000 ml Estimated Blood Loss 50 ml Other 0 ml # Voids 3 4 # Bowel Movements 0 0 0 0 Result Diagram: 05/28/16 0545 05/28/16 0545 Objective Remarks Physical Exam Not in distress, well-nourished, looks stated age PERRL, pink conjunctiva without injection, anicteric Nose without bleeding, airway patent, oropharynx clear Supple neck, no masses or thyromegaly, trachea midline Normal rate and regular rhythm, no murmurs gallops or rubs appreciated. Clear to auscultation and symmetric bilaterally, normal respiratory effort. Normal bowel sounds, soft, non-tender, nondistended, no guarding. Extremities without clubbing, cyanosis, or edema. Left ankle dressings in place. No rash of generalized distribution. Skin is warm and dry. AAO x3, no cranial nerve deficits, moves all 4 extremities, no focal neurologic deficits Normal mood, appropriate affect A/P Problem List: (1) Fracture of ankle, lateral malleolus, left, closed ICD Code: S82.62XA Status: Acute Assessment and Plan This is a 80-year-old male admitted for left lateral malleolar fracture. Left lateral malleolus fracture-consult orthopedics, surgery per orthopedics. Start pain control with oral and IV narcotics as needed. History of coronary artery disease-status post angioplasty in the past, allegedly initially placed on cardiac meds but taken off. EKG personally reviewed did not show any abnormalities, sinus rhythm. Uncontrolled hypertension-per patient, usually systolic more than 140s at home, here, 170s to 180s. Start Vasotec as needed, start lisinopril. Blood pressure still not controlled. EKG as above. Iron deficiency anemia-also with macrocytosis, continue folate, start ferrous sulfate. Mild LFT elevation and hyperbilirubinemia-worsening, recheck tomorrow. DVT prophylaxis: Start after surgery. Joanna Beck MD May 28, 2016 16:49
[2016-05-28 20:00] VITALS: BP 117/60; PULSE 87; RESP 18; TEMP 95.8; O2SAT 98
[2016-05-28] MEDS: MULTIVITAMINS/MINERALS THERAPEUTIC TAB PO SCH (22:13)
[2016-05-28] MEDS: FERROUS SULFATE 325 MG (65 MG ELEMENTAL IRON) TAB PO SCH (22:13)
[2016-05-28] MEDS: DOCUSATE SODIUM 100 MG CAP PO SCH (22:13)
[2016-05-29] VITALS: BP 171/76; PULSE 71; RESP 16; TEMP 98.2; O2SAT 95
[2016-05-29] MEDS: LACTATED RINGER'S 1000 ML INJ 1,000 ML IV SCH (00:10)
[2016-05-29] MEDS: SODIUM CHLOR 0.9% 1000 ML INJ 1,000 ML IV SCH ×2 (00:10→10:00)
--- NOTE | 2016-05-29 07:57 | PD.ORT.PN ---
Subjective Post Op Day #: 2 Subjective Remarks Patient laying comfortably in bed, awake and alert, answering questions appropriately. He admits his left ankle pain is well controlled. No other complaints at this time. Objective Vitals Vital Signs Date Time Temp Pulse Resp B/P Pulse Ox O2 Delivery O2 Flow Rate FiO2 05/29/16 00:00 98.2 71 16 171/76 95 05/28/16 20:00 95.8 87 18 117/60 98 05/28/16 16:22 98.0 70 16 140/50 98 05/28/16 12:09 97.9 69 16 144/72 97 05/28/16 08:30 Room Air 05/28/16 08:05 97.7 67 18 151/77 98 I/O 05/28/16 05/28/16 05/28/16 05/29/16 05/29/16 05/29/16 07:00 15:00 23:00 07:00 15:00 23:00 Intake Total 771 ml 780 ml 360 ml 240 ml Output Total 1000 ml 400 ml 1850 ml Balance -229 ml 780 ml -40 ml -1610 ml Intake Oral 480 ml 780 ml 360 ml 240 ml IV Total 291 ml Output Urine Total 1000 ml 400 ml 1850 ml # Voids 5 # Bowel Movements 0 1 Result Diagram: 05/28/16 0545 05/28/16 0545 Imaging Last 48 hours Impressions Ankle X-Ray 05/27/16 0000 Signed Impressions: Service Date/Time: Friday, May 27, 2016 12:31 - CONCLUSION: Good position and alignment on this postoperative study. Kal Padilla MD Ankle X-Ray 05/26/161906 Signed Impressions: Service Date/Time: Thursday, May 26, 2016 19:09 - CONCLUSION: 1. Lateral malleolus fracture with medial subluxation persisting. Daljit Hughes MD Chest X-Ray 05/26/161826 Signed Impressions: Service Date/Time: Thursday, May 26, 2016 18:38 - CONCLUSION: 1. No active disease. Daljit Hughes MD Procedures Open reduction internal fixation left displaced lateral malleolus fracture Objective Remarks LLE: splint and dressing intact. skin is warm. good cap refill. ability to wiggle toes freely and move knee. Assessment & Plan Ortho Post Op Day #: 2 Problem List: (1) Fracture of ankle, lateral malleolus, left, closed Assessment and Plan Ortho status stable POD #2, Open reduction internal fixation left displaced lateral malleolus fracture Progress rehab Continue Lovenox for DVT prophylaxis, pain management and bowel regimen Dressing changes today before d/c Discharge planning - ready to be discharged to home today from ortho standpoint f/u in office in one week Nadya Strickland May 29, 2016 07:57
[2016-05-29 08:00] VITALS: BP 179/81; PULSE 73; RESP 16; TEMP 98.2; O2SAT 95
--- NOTE | 2016-05-29 08:01 | HHI.DS ---
Discharge Summary Admission Date May 26, 2016 at 20:09 Discharge Date: May 29, 2016 Admitting Diagnosis Left ankle fracture Diagnosis: (1) Fracture of ankle, lateral malleolus, left, closed Procedures Open reduction internal fixation left displaced lateral malleolus fracture Brief History 80 yo male presented to [facility] ER yesterday evening due to increased pain in left ankle and pain with ambulation. He admits 4 days ago he hit his left ankle on the door at home and immediately fell to the ground landing on his left foot. He had immediate pain and swelling but thought it would get better over time. He treated injury with conservative care including ice, elevation, rest and Aspirin. On day 3 after the injury he admits he couldn' t take the pain anymore and had his neighbor take him to the emergency room in [place]. After evaluation and x-rays it was revealed he had a closed left lateral malleolar fracture with medial subluxation. Due to an obvious deformity a conscious sedation closed reduction was attempted in the ER. Orthopedic consultation was requested. It was recommended at this time to have the patient transported to the main canalou in [place] for surgical evaluation and treatment. He has never injured this extremity before and has no previous orthopedic conditions. He previously ambulated unassisted and lived independently at home. No other complaints are noted from patient. CBC/BMP: 05/28/16 0545 05/28/16 0545 Significant Findings Laboratory Tests Test 05/26/16 05/28/16 18:30 05:45 Red Blood Count 2.96 MIL/MM3 2.82 MIL/MM3 (4.50-5.90) (4.50-5.90) Hemoglobin 10.3 GM/DL 10.1 GM/DL (13.0-17.0) (13.0-17.0) Hematocrit 30.4 % 29.3 % (39.0-51.0) (39.0-51.0) Mean Corpuscular Volume 102.8 FL 103.8 FL (80.0-100.0) (80.0-100.0) Mean Corpuscular Hemoglobin 35.0 PG 35.9 PG (27.0-34.0) (27.0-34.0) Red Cell Distribution Width 17.5 % 17.4 % (11.6-17.2) (11.6-17.2) Neutrophils (%) (Auto) 75.8 % (16.0-70.0) Blood Urea Nitrogen 32 MG/DL (7-18) 21 MG/DL (7-18) Estimat Glomerular Filtration 59 ML/MIN (>89) 54 ML/MIN (>89) Rate Random Glucose 120 MG/DL 114 MG/DL (74-106) (74-106) Total Bilirubin 1.6 MG/DL (0.2-1.0) Aspartate Amino Transf 189 U/L (15-37) 212 U/L (15-37) (AST/SGOT) Alanine Aminotransferase 101 U/L (12-78) 148 U/L (12-78) (ALT/SGPT) Total Creatine Kinase 536 U/L (39-308) Troponin I LESS THAN 0.02 NG/ML (0.02-0.05) Folate GREATER THAN 20.0 NG/ML (3.1-17.5) Monocytes (%) (Auto) 9.7 % (0.0-8.0) Calcium Level 8.3 MG/DL (8.5-10.1) Iron Level 35 MCG/DL (65-175) Total Iron Binding Capacity 223 MCG/DL (250-450) Percent Iron Saturation 15.7 % (20-50) Ferritin 796 NG/ML (26-388) Albumin 3.0 GM/DL (3.4-5.0) PE at Discharge LLE: splint and dressing intact. skin is warm. good cap refill. ability to wiggle toes freely and move knee. Hospital Course Patient presented to [facility] in [place] for evaluation and treatment by orthopedic surgery. He was brought to the operating room for correction of the left ankle fracture. See operative report for full details. Patient was admitted for observation, pain management, antibiotic treatment, anti-coagulation and therapy. He tolerated the procedure and his hospital stay very well. Patient will be discharged to home and is to follow up in the office. Pt Condition on Discharge: Good Discharge Disposition: Discharge Home Discharge Instructions Diet Instructions: As Tolerated, No Restrictions, High Fiber Diet Activities You Can Perform: Non Weight Bearing (left extremity) Activities to Avoid: Lifting/Bending Ndaya Strickland May 29, 2016 08:01
[2016-05-29] MEDS ORDERED: ENOX40P SQ (08:05)
[2016-05-29] MEDS ORDERED: DOCU1CAP39 PO (08:05)
[2016-05-29] MEDS ORDERED: OXYC1TAB63 PO (08:05)
[2016-05-29] MEDS ORDERED: WALKER/ADULT/FO1 MIS (08:05)
[2016-05-29] MEDS ORDERED: LISINOPRIL 10 MG TAB PO SCH (09:00)
[2016-05-29] MEDS: SENNOSIDES 8.6 MG TAB PO SCH (09:00)
[2016-05-29] MEDS: SODIUM CHLORIDE 0.9% FLUSH 5 ML FLUSH IVF SCH (09:00)
[2016-05-29] MEDS: DOCUSATE SODIUM 100 MG CAP PO SCH (09:00)
[2016-05-29] MEDS ORDERED: FERR325T PO (09:05)
[2016-05-29] MEDS ORDERED: LISI10TA3 PO (09:05)
--- NOTE | 2016-05-29 09:07 | HHI.PR ---
Subjective Remarks f/u HTN BP still fluctuating 140s-170s, no MANTILLA or CP, no SOB. Objective Vitals Vital Signs Date Time Temp Pulse Resp B/P Pulse Ox O2 Delivery O2 Flow Rate FiO2 05/29/16 00:00 98.2 71 16 171/76 95 05/28/16 20:00 95.8 87 18 117/60 98 05/28/16 16:22 98.0 70 16 140/50 98 05/28/16 12:09 97.9 69 16 144/72 97 I/O 05/28/16 05/28/16 05/28/16 05/29/16 05/29/16 05/29/16 06:59 14:59 22:59 06:59 14:59 22:59 Intake Total 771 ml 780 ml 360 ml 240 ml Output Total 1000 ml 400 ml 1850 ml Balance -229 ml 780 ml -40 ml -1610 ml Intake Oral 480 ml 780 ml 360 ml 240 ml IV Total 291 ml Output Urine Total 1000 ml 400 ml 1850 ml # Voids 5 # Bowel Movements 0 1 Result Diagram: 05/28/16 0545 05/28/16 0545 Objective Remarks Not in distress, well-nourished, looks stated age PERRL, pink conjunctiva without injection, anicteric Nose without bleeding, airway patent, oropharynx clear Supple neck, no masses or thyromegaly, trachea midline Normal rate and regular rhythm, no murmurs gallops or rubs appreciated. Clear to auscultation and symmetric bilaterally, normal respiratory effort. Normal bowel sounds, soft, non-tender, nondistended, no guarding. Extremities without clubbing, cyanosis, or edema. Left ankle dressings in place. No rash of generalized distribution. Skin is warm and dry. AAO x3, no cranial nerve deficits, moves all 4 extremities, no focal neurologic deficits Normal mood, appropriate affect A/P Problem List: (1) Fracture of ankle, lateral malleolus, left, closed ICD Code: S82.62XA Status: Acute Assessment and Plan This is a 80-year-old male admitted for left lateral malleolar fracture. Left lateral malleolus fracture- s/p ORIF. Cont pain control History of coronary artery disease-status post angioplasty in the past, allegedly initially placed on cardiac meds but taken off. EKG personally reviewed did not show any abnormalities, sinus rhythm. Uncontrolled hypertension-per patient, usually systolic more than 140s at home, here, 170s to 180s. Cont lisinopril. Blood pressure still not controlled. EKG as above. Iron deficiency anemia-also with macrocytosis, continue folate, cont ferrous sulfate. Mild LFT elevation and hyperbilirubinemia-worsening, f/u as outpatient DVT prophylaxis: Lovenox per surgery Joanna Beck MD May 29, 2016 09:07
[2016-05-29] MEDS: MULTIVITAMINS/MINERALS THERAPEUTIC TAB PO SCH (09:46)
[2016-05-29] MEDS: FERROUS SULFATE 325 MG (65 MG ELEMENTAL IRON) TAB PO SCH (09:47)
[2016-05-29] MEDS: LACTATED RINGER'S 1000 ML IV SCH (10:30)
[2016-05-29 12:00] VITALS: BP 155/74; PULSE 80; RESP 20; TEMP 98; O2SAT 97
[2016-05-29] MEDS: ENOXAPARIN SODIUM 40 MG/0.4 ML SYRINGE SQ SCH (12:24)
== END 2016-05-29 16:40 | disposition home health service (06) | DRG 494 ==
LOC: PHED 16:45 → PHEDA 20:09 → N06B 22:23
PROVIDERS: ADMIT Hospitalist; ATTEND Hospitalist
PROC: 0QSKXZZ Reposition Left Fibula, External Approach (ICD-10-PCS; 2016-05-26)
PROC: 0QSK04Z Reposition Left Fibula with Internal Fixation Device, Open Approach (ICD-10-PCS; principal; 2016-05-27 11:24)
DX: S82.62XA Displaced fracture of lateral malleolus of left fibula, initial encounter for closed fracture (principal); D75.89 Other specified diseases of blood and blood-forming organs; I10 Essential (primary) hypertension; F17.200 Nicotine dependence, unspecified, uncomplicated; D50.9 Iron deficiency anemia, unspecified; I25.2 Old myocardial infarction; I25.10 Atherosclerotic heart disease of native coronary artery without angina pectoris; W01.198A Fall on same level from slipping, tripping and stumbling with subsequent striking against other object, initial encounter; Y93.89 Activity, other specified; Y92.009 Unspecified place in unspecified non-institutional (private) residence as the place of occurrence of the external cause; J61 Pneumoconiosis due to asbestos and other mineral fibers; Z98.61 Coronary angioplasty status; R79.89 Other specified abnormal findings of blood chemistry
CPT/HCPCS: 27840; 71010; 73600; 73610; 76000; 80053; 82550; 82552; 82728; 82746; 83540; 83550; 83735; 84484; 85025; 85610; 85730; 93005; 94150; 94770; 96361; 96374; 96375; 99152; C1713; J0690; J1580; J1650; J2270; J2405; J7030; J7120